=== PATIENT | male | born 1955 | race Caucasian/White ===

== ENCOUNTER → 2016-12-23 | Day surgery (SDC) | payer OTHER ==
[2016-12-06 10:00] VITALS: BMI 36.0
--- NOTE | 2016-12-06 10:39 | PAT Medication Instructions ---
Service Date Dec 06, 2016. Current Home Medication List Amphetamine-Dextroamphetamine 30MG (Adderall 30MG), 30 MG PO QAM Atorvastatin (Lipitor), 80 MG PO QPM Duloxetine Hcl (Cymbalta), 60 MG PO QAM Multivitamin (Multivitamin), 1 TAB PO QAM Oxycodone/Acetaminophen 5MG/325MG (Percocet 5MG/325MG), 1-2 TABLETS PO Q4-6H PRN for Pain Trazodone Hcl (Trazodone), 200 MG PO QAM Medication Instructions For Your Scheduled Surgery - Hold the following medications the morning of surgery: Multivitamin (Multivitamin), 1 TAB PO QAM Amphetamine-Dextroamphetamine 30MG (Adderall 30MG), 30 MG PO QAM - Take the following medications the morning of surgery with a sip of water: Trazodone Hcl (Trazodone), 200 MG PO QAM Oxycodone/Acetaminophen 5MG/325MG (Percocet 5MG/325MG), 1-2 TABLETS PO Q4-6H PRN for Pain (can take up to four hours prior to surgery if needed) Duloxetine Hcl (Cymbalta), 60 MG PO QAM - Take the following medications as scheduled the night before surgery: Oxycodone/Acetaminophen 5MG/325MG (Percocet 5MG/325MG), 1-2 TABLETS PO Q4-6H PRN for Pain Atorvastatin (Lipitor), 80 MG PO QPM If you have any questions please call us at [phone] or [phone] ( [facility]ayn[place]) or [phone]
--- NOTE | 2016-12-06 11:17 | DIAGNOSTIC IMAGING REPORT ---
TWO VIEW CHEST CLINICAL HISTORY: Preoperative examination. FINDINGS: PA and lateral chest radiographs are obtained. No prior studies are available for comparison at the time of dictation. The PA view is degraded by patient rotation. The heart is enlarged. The mediastinal contour is normal as visualized. The lungs appear hyperinflated and hyperlucent with flattening of the diaphragm. These findings suggest obstructive physiology. There is nonspecific interstitial thickening. No airspace consolidation or pleural effusion is seen. There is no pneumothorax. The skeletal structures are osteopenic. Degenerative change is noted throughout the thoracic spine. IMPRESSION: 1. Cardiomegaly without radiographic evidence of congestive failure. 2. Findings suggest obstructive physiology. No airspace consolidation or pleural effusion is seen. Electronically signed by: Lucio Darling M.D. 12/06/2016 11:16 AM Dictated Date/Time: 12/06/2016 11:14 AM
[2016-12-06 11:21] LABS: BASO % 0.3 %; BASO ABS # 0.02 K/uL (0-0.2); COMPLETE YES; EOS % 0.8 %; HEMATOCRIT 45.2 % (42-52); IG% 0.3 %; LYMPH % 30.5 %; MEAN CORPUSCULAR HEMOGLOBIN 33.1 pg (25-34); MEAN CORPUSCULAR HGB CONC 35.2 g/dl (32-36); MEAN PLATELET VOLUME 8.8 fL (7.4-10.4); MONO % 8.6 %; NEUT % 59.5 %; PLATELET COUNT 210 K/uL (130-400); RED BLOOD COUNT 4.81 M/uL (4.7-6.1)
[2016-12-06 11:40] LABS: BUN/CREATININE RATIO 14.5 (10-20); CREATININE 0.92 mg/dl (0.60-1.40); POTASSIUM 4.6 mmol/L (3.5-5.1)
[2016-12-06 11:43] LABS: URINE APPEARANCE CLEAR (CLEAR); URINE BILIRUBIN NEG (NEG); URINE COLOR YELLOW; URINE NITRITE NEG (NEG); URINE PH 5.5 (4.5-7.5); URINE SPECIFIC GRAVITY 1.021 (1.000-1.030); UROBILINOGEN NEG (NEG)
[2016-12-06 11:46] LABS: MANUAL MICROSCOPIC REQUIRED? NO; REVIEW REQ? NO
--- NOTE | 2016-12-22 20:33 | HISTORY & PHYSICAL EXAMINATION ---
DATE OF ADMISSION: 12/23/2016 SUBJECTIVE CHIEF COMPLAINT: Right knee pain. HISTORY OF PRESENT ILLNESS: This is a patient who has had a right-sided knee pain and had an MRI which demonstrated a medial meniscus tear as well as cartilage losses of the medial compartment and patellofemoral compartments of the knee with underlying bony changes. He is now being set up for surgical treatment. PAST MEDICAL HISTORY: Depression, obesity and hyperlipidemia. FAMILY HISTORY: Noncontributory. SOCIAL HISTORY: The patient is a 1 pack per day smoker over the past 30 years. Denies alcohol use. FAMILY HISTORY: Noncontributory. PAST SURGICAL HISTORY: Foot surgery to correct hammertoes. ALLERGIES: No known drug allergies. CURRENT MEDICATIONS: Trazodone, Cymbalta, Adderall and Lipitor. OBJECTIVE PHYSICAL EXAMINATION: GENERAL: The patient is alert and oriented x3. He is in no acute distress. He is a well-dressed, well-nourished 61-year-old male whose affect is appropriate. CARDIOVASCULAR: Heart has a regular rhythm and rate without murmurs. LUNGS: Clear to auscultation bilateral. LYMPHATICS: No evidence of any swollen lymph nodes. MUSCULOSKELETAL: The patient has an antalgic gait favoring the right lower extremity. Upon inspection of the right lower extremity, the patient has swelling noted of the right knee is also a knee effusion noted. With palpation, he has tenderness at the medial joint space as well as over the patella. There is crepitation noted with passive range of motion of the right knee. He has a positive [place] test on the right knee with pain elicited. The patient has decreased range of motion and strength, right lower extremity secondary to pain. SKIN: There are no scars, rashes or ulcers noted. NEUROLOGIC: Sensation normal intact distally, right lower extremity. X-RAY EXAM: MRI of the right knee demonstrates a medial meniscus tear as well extensive loss of the cartilage of the medial compartment of the knee and the medial femoral condyle and medial tibial plateau. ASSESSMENT AND DIAGNOSES: 1. Right knee medial meniscus tear. 2. Osteoarthritis, right knee with patellofemoral and medial compartment changes. PLAN: Above assessment was discussed with the patient. At this time, it was recommended the patient undergo a right knee arthroscopy with partial medial meniscectomy, chondroplasty of the medial femoral condyle and possible repair of an insufficiency fracture of the medial femoral condyle with a settable bone substitute. All potential risks, benefits, complications, alternatives and rehab have been discussed with the patient. At this time, he wishes to proceed with the surgery as indicated. He will be scheduled for the surgery on 12/23/2016.
[~2016-12-23] VITALS: Ht 188 cm; Wt 127.8 kg
[~2016-12-23] MED LIST: AMPH30TA2 PO; ATOR-26 PO; ATROPINE SULFATE 0.1 MG/ML 5ML SYR IV PRN; BUPIVACAINE/EPINEPHRINE 0.5% MPF 1:200,000 30 ML VIAL ONE; CEFAZOLIN IV 3,000 MG/65 ML D5W IV ONE; DEXAMETHASONE SOD INJ 4 MG/ML VIAL ONE; DULO60CA44 PO; EpHEDrine SULFATE INJ 50 MG/ML AMP IV PRN; FENTANYL CITRATE INJ 50 MCG/1 ML 2 ML VIAL IV PRN; FENTANYL CITRATE INJ 50 MCG/1 ML 2 ML VIAL ONE; GLYCOPYRROLATE INJ 0.2 MG/ML VIAL ONE; HYDROmorphone INJ 1 MG/ML SYR IV PRN; LABETALOL HCL IV 5 MG/ML 20ML ONE; LACTATED RINGER'S 1000ML 1,000 ML IV SCH; LIDOCAINE HCL 2% 2 ML VIAL (20MG/ML) ONE; MIDAZOLAM HCL 1 MG/ML 2ML VIAL ONE; MULT-506 PO; NEOSTIGMINE METHYLSULFATE 5 MG/5 ML SYR ONE; NURSING VERBAL MED ORDER STA; ONDANSETRON INJ 2 MG/ML 2 ML VIAL IV PRN; ONDANSETRON INJ 2 MG/ML 2 ML VIAL ONE; OXYC-57 PO; OXYCODONE/ACETAMINOPHEN 5-325 TAB ONE; OXYCODONE/ACETAMINOPHEN 5-325 TAB PO PRN; PROMETHAZINE HCL INJ 6.25 MG in SODIUM CHLORIDE 0.9% 50ML 50 ML IV PRN; PROPOFOL IV EMULSION 10 MG/ML 20 ML VIAL IV ONE; ROCURONIUM BROMID 50MG/5ML SYR ONE; TRAZ100T29 PO
[2016-12-23 06:52] VITALS: BP 138/76; PULSE 71; TEMP 36.7; O2SAT 97; Ht 188 cm; Wt 127.8 kg
--- NOTE | 2016-12-23 07:31 | History & Physical Bridge Note ---
H&P Re-Evaluation Bridge Note: I have examined the patient, reviewed the History & Physical and in the interval since the performance of the History & Physical I have noted the following changes of clinical significance: No changes noted
--- NOTE | 2016-12-23 10:46 | DIAGNOSTIC IMAGING REPORT ---
INTRAOPERATIVE FLUOROSCOPIC IMAGES OF THE RIGHT KNEE CLINICAL HISTORY: Right knee chondroplasty. COMPARISON STUDY: No previous studies for comparison. FLUOROSCOPY TIME: 65.6 seconds. FINDINGS: 2 fluoroscopic images of the right knee were obtained. No fracture or unexpected radiopaque foreign bodies are identified. A few densities are noted along the lateral aspect of the metaphysis of the distal right femur. Soft tissue gas is noted as expected. IMPRESSION: Intraoperative fluoroscopic images of the right knee. Electronically signed by: Venkata Kumar M.D. 12/23/2016 10:45 AM Dictated Date/Time: 12/23/2016 10:43 AM
--- NOTE | 2016-12-23 11:06 | [facility] Post Operative Brief Note ---
Immediate Operative Summary Operative Date Dec 23, 2016. Pre-Operative Diagnosis Right knee medial meniscus tear, Osteoarthritis, right knee with patellofemoral and medial compartment changes. 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 Procedure(s) Performed Right Knee Arthroscopy with Partial Medial Menisectomy; Chondroplasty Medial Femoral Condyle; Repair of Insufficiency Fracture medial femoral condyle with Settable Bone Substitute; Exostectomy Medial femoral condyle; Chondroplasty patella; Synovectomy Surgeon Dr. Banegas Forming Acid Dumper Surgeon(s) none Estimated Blood Loss 2 cc Findings See Dict Specimens none per surgeon Drains None Anesthesia GLMA w/ local Complication(s) None Disposition Recovery Room / PACU
[2016-12-23 11:50] VITALS: BP 147/75; PULSE 63; TEMP 36.8; O2SAT 95
--- NOTE | 2016-12-23 11:53 | Anesthesiology Progress Note ---
Anesthesia Post Op Note Date & Time Dec 23, 2016 at 11:53 Vital Signs Pain Intensity: 0 Vital Signs Past 12 Hours Date Time Temp Pulse Resp B/P Pulse Ox O2 Delivery O2 Flow Rate FiO2 12/23/16 11:35 79 24 158/87 95 Room Air 12/23/16 11:25 36.2 66 20 148/90 96 Room Air 12/23/16 11:15 66 17 153/86 95 Room Air 12/23/16 11:05 64 21 141/80 99 Mask 10 12/23/16 10:55 65 19 131/83 97 Mask 10 12/23/16 10:45 36.0 67 20 145/77 95 Mask 10 12/23/16 06:52 36.7 71 20 138/76 97 Room Air Notes Mental Status: alert / awake / arousable, participated in evaluation Pt Amnestic to Procedure: Yes Nausea / Vomiting: adequately controlled Pain: adequately controlled Airway Patency, RR, SpO2: stable & adequate BP & HR: stable & adequate Hydration State: stable & adequate Anesthetic Complications: no major complications apparent
--- NOTE | 2016-12-23 12:02 | Discharge Instructions ---
Discharge Instructions Admission Reason for Admission: Complex Tear of Medial Meniscus, Current Injury, Discharge Discharge Diagnosis / Problem: right knee medial meniscus tear Discharge Goals Goal(s): Decrease discomfort, Improve function Activity Recommendations Activity Limitations: as noted below Lifting Limitations: until after follow-up appointment Exercise/Sports Limitations: until after follow-up appointment May Resume Sexual Activity: when tolerated Shower/Bathe: may shower/bathe in 3 days Driving or Machine Use: When cleared by Dr. Banegas's clinic. Weightbearing Status: Right partial (50% weightbearing with crutches until seen for follow up.) . Instructions / Follow-Up Instructions / Follow-Up ACTIVITY RECOMMENDATIONS: * You may walk on the leg with crutches as comfort permits. * Bending of the knee should start at once. * Do not shower for 72 hours following surgery. SPECIAL CARE INSTRUCTIONS: * You may cleanse the skin adjacent to the small wounds with soap and water at the time of the first dressing change. * The application of an ice bag to the front and sides of the knee will decrease swelling and discomfort for the first 48-96 hours. * The small incisions may be sore and develop bruising. This bruising does not require any special care. SPECIAL PRECAUTIONS: * If you experience unusual pain unrelieved by prescriptions, temperature elevation (100 degrees F. or above) or progressive swelling or bleeding, you should contact our office at for further evaluation. * You may have been prescribed pain medication. If you experience nausea and/or fine skin rash, discontinue this medication and contact our office at for an alternate medication. DRESSING: * Dressing should be comfortable and absorb any leakage of fluid and/or blood. * The dressing may become moist or bloodstained. * Dressing may be removed 3 days after surgery and bandaids placed over the small surgical incisions. If can be removed sooner if it becomes very soiled or loose. * Bandaids may be used over next several days as needed and can be discontinued when there is not further drainage from the wounds. FOLLOW UP VISIT: If appointment is not already scheduled: Please call [facility] to make a follow-up appointment for 2 weeks after your surgery at . Current Hospital Diet Patient's current hospital diet: Discharge Diet Recommended Diet: Regular Diet Procedures Procedures Performed: Right Knee Arthroscopy with Partial Medial Menisectomy; Chondroplasty Medial Femoral Condyle; Repair of Insufficiency Fracture medial femoral condyle with Settable Bone Substitute; Exostectomy Medial femoral condyle; Chondroplasty patella; Synovectomy Pending Studies Studies pending at discharge: no Medical Emergencies . Who to Call and When: Medical Emergencies: If at any time you feel your situation is an emergency, please call 911 immediately. . Non-Emergent Contact Non-Emergency issues call your: Surgeon Call Non-Emergent contact if: temperature is above 101, your pain is not controlled, your pain is worsening, wound has increased drainage, wound has increased redness, wound has increased pain . "Provider Documentation" section prepared by Tres Jennings. VTE Core Measure Inpt VTE Proph given/why not?: Treatment not indicated
[2016-12-23 12:20] VITALS: BP 144/65; PULSE 67; O2SAT 97
[2016-12-23 12:50] VITALS: BP 135/72; PULSE 80; TEMP 36.8; O2SAT 96
--- NOTE | 2016-12-23 17:30 | OPERATIVE REPORT ---
DATE OF OPERATION: 12/23/2016 PREOPERATIVE DIAGNOSES: 1. Right knee medial meniscus tear. 2. Insufficiency fracture of the medial femoral condyle. 3. Chondromalacia of patella. POSTOPERATIVE DIAGNOSES: 1. Right knee medial meniscus tear. 2. Insufficiency fracture of medial femoral condyle. 3. 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 4. Exostosis of the medial femoral condyle. 5. Chondromalacia of the patella grade 3. 6. Synovitis of the knee. PROCEDURES: 1. Right knee arthroscopy with partial medial meniscectomy. 2. Treatment of medial femoral condyle insufficiency fracture with settable bone substitute. 3. Chondroplasty of the medial femoral condyle. 4. Exostectomy of medial femoral condyle. 5. Chondroplasty of patella. 6. Synovectomy of the knee. SURGEON: Dr. Banegas. PARALEGAL SECRETARY: None. ANESTHESIA: General LMA with local. SPECIMENS: None. DRAINS: None. COMPLICATIONS: None. BLOOD LOSS: 2 mL. PERTINENT HISTORY: This is a 61-year-old gentleman who fell a twisting injury of his right knee. He had some significant effusion and swelling of the knee that worsened with activity. He attempted use of a brace, observation, anti-inflammatories, rest, home exercises and failed all measures. Had an MRI which demonstrated significant internal derangement and internal pathology. The patient was then noted to have a medial meniscus tear and insufficiency fracture of medial femoral condyle and was scheduled for surgery as indicated. All potential risks, benefits, complications, alternatives, rehab, potential for incomplete relief of symptoms, need for further surgery, DVT, PE, , persistent pain, swelling, scarring, weakness, neurovascular injury, wound complications, bone fracture were discussed with the patient. The patient decided to proceed with the procedure as indicated. PROCEDURE IN DETAIL: The patient was taken to the operative suite, placed supine on the operating room table. The consent was reviewed and the proper operative site was identified. The patient was then anesthetized, LMA was placed. Tourniquet was placed high on the right thigh over cast padding. Right lower extremity was then sterilely prepped and draped in usual fashion, elevated and exsanguinated with an Esmarch bandage and tourniquet inflated to 350 mmHg. Next, an 11 blade scalpel was used to make an incision in the inferior lateral aspect of the knee, followed by placement of blunt trocar and sleeve camera and inflow. Next, a superior medial portal was established using 11-blade scalpel incision, followed by placement of blunt trocar and sleeve and outflow. Next, sequential diagnostic arthroscopy commenced in the suprapatellar pouch, noting synovitis. No loose bodies. Next, the medial gutter was inspected and noted to have no loose bodies, moderate synovitis and large exostosis of the medial aspect of the medial femoral condyle. Next, the medial joint space was inspected and noted to have a previous partial meniscectomy; however, there was noted to be tearing of the body, transitioning into the anterior horn of the medial meniscus. Next, portal site was established using an 11-blade scalpel incision, which was then followed by placement of a 4.5 mm sucker shaver which was used to perform partial medial meniscectomy. Also noted to be grade 3-4 chondromalacia of the medial femoral condyle. Eburnated bone was noted in the far medial aspect with a kissing lesion on the proximal tibia with grade 4 chondromalacia, approximately 1-1.25 cm in length and approximately 7 mm in width. Next, the 4.5 mm sucker shaver was then used to perform partial medial meniscectomy, resecting the damaged portion of the medial meniscus. Next, a chondroplasty was performed of the medial femoral condyle, smoothing contour in the fibrillations of the distal femur. Next, exostectomy was performed of the medial femoral condyle, resecting bony spur medially. Next, the attention was then directed toward the ACL and the PCL. Probe was inserted, the ligaments were probed and noted to be stable and intact. Next, the lateral compartment was inspected and noted to have no significant tearing of the lateral meniscus. Chondral surfaces appeared to be intact. Next, lateral gutter was inspected and noted to have moderate synovitis. No loose bodies. Next, a 4.5 mm sucker shaver was then used to perform a synovectomy throughout the joint, beginning in the lateral gutter, followed by the suprapatellar pouch and then the medial gutter. The medial and lateral joint spaces also had synovitis which was also resected. Next, attention was then directed back toward the patella, noted to be grade 3 chondromalacia of the patella with fibrillation and a small flap tear. At this time chondroplasty was performed of the patella with a 4.5 mm sucker shaver. After this was completed, all particulate debris was flushed from the joint. Second look was made for loose bodies throughout the joint. There were none to be found. Next, the arthroscope was removed from the joint. Excess fluid was expressed from the joint and then at this point, under live fluoroscopic assistance, a small lateral stab incision made over the lateral femoral condyle. Next, the guide trocar was then passed into the lateral femoral condyle through the medial femoral condyle under live fluoroscopic assistance to place the directional trocar for implantation of settable bone substitute. The fluoroscope images obtained during the case confirmed placement in the identical region as noted on MRI for insufficiency fracture of the medial femoral condyle. Next, 5 syringes of settable bone substitute was then injected in the medial femoral condyle, using care not to penetrate the cortex. Next, the radiographs obtained in AP and lateral projections, confirming placement of the settable bone substitute within the medial femoral condyle. After this was completed, trocar was then removed from the lateral stab incision. The wound was irrigated with sterile normal saline and then closed using nylon suture 4.0. Next, arthroscope was inserted back into the knee joint via the previously placed portals for final look arthroscopy. There was noted to be no extrusion of the settable bone substitute intraarticularly after careful observation of the joint. Next, portal sites removed. Excess fluid was expressed from the knee joint, followed by closure of the portal sites with interrupted 4-0 nylon sutures. Approximately, 30 mL of 0.25% Marcaine with epinephrine was injected into the knee joint for postop pain and bleeding control. A sterile compressive dressing and Bandar wrap was applied. The tourniquet was released. The patient was awakened and taken to recovery in stable condition. I attest to the content of the Intraoperative Record and any orders documented therein. Any exceptio ns are noted below.
== END | disposition home or self-care (01) ==
LOC: C.ACU 06:14
PROVIDERS: ATTEND Orthopaedic Surgery Sports Medicine
DX: S83.241A Other tear of medial meniscus, current injury, right knee, initial encounter (principal); X50.9XXA Other and unspecified overexertion or strenuous movements or postures, initial encounter; M94.211 Chondromalacia, right shoulder; M25.70 Osteophyte, unspecified joint; M65.9 Synovitis and tenosynovitis, unspecified; Y93.01 Activity, walking, marching and hiking; Y92.89 Other specified places as the place of occurrence of the external cause; Y99.8 Other external cause status